=== PATIENT | male | born 1960 | race Two or more races ===

== ENCOUNTER → 2024-09-09 | Outpatient (BNVA) | payer MEDICAID, SELFPAY | END | disposition home or self-care (01) | PROVIDERS: PCP Physician Assistant; Referring Provider Physician Assistant; Visit Provider Urology | DX: C61 Malignant neoplasm of prostate (principal); N52.9 Male erectile dysfunction, unspecified; N39.3 Stress incontinence (female) (male) | CPT/HCPCS: 81003; 99212; G0463 ==

== ENCOUNTER → 2024-10-25 | Outpatient (BNVA) | payer MEDICAID, SELFPAY | END | disposition home or self-care (01) | PROVIDERS: PCP Physician Assistant; Referring Provider Physician Assistant; Visit Provider Urology | DX: N32.89 Other specified disorders of bladder (principal); C61 Malignant neoplasm of prostate; N52.9 Male erectile dysfunction, unspecified; Z90.79 Acquired absence of other genital organ(s) | CPT/HCPCS: 52000; 81003; 96372; A4217; A4649; C1894; J1580; A9270 ==